=== PATIENT | female | born 1970 ===

== ENCOUNTER 2016-10-06 07:13 | Emergency (ER) | payer OTHER ==
--- NOTE | 2016-10-06 09:40 | ED NURSING NOTES ---
Clinical Report - Nurses [facility] [place] [address] 10/06/2016 7:16 Patient: AUGUST MURGUIA TRIAGE Triage time 07:22. Acuity: LEVEL 3. Chief Complaint: ABDOMINAL PAIN and BLOOD IN STOOLS. Alert. --07:28 Yuly Love R.N. 07:22 10/06/16. BP: 153/84. HR: 124. RR: 16. O2 saturation: 100%. Temp: 98.4 F. Pain level now 0/10. --07:28 Yuly Love R.N. Weight: 103.4 kg. Height/Length: 62 inches. BMI: 41.7. --07:27 Yuly Love R.N. Allergies No Known Drug Allergy. --07:24 Yluy Love R.N. History Arrived by private vehicle. Historian: patient. Accompanied by family. [facility] This started today. She has had nausea. 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 SOCIAL HX: No alcohol use or drug use. No recent travel. No known contact with a sick individual. --07:28 Yuly Love R.N. PROBLEMS: Hemorrhoids. --07:25 Yuly Love R.N. ADDITIONAL SURGERIES: . --07:25 Yuly Love R.N. PHYSICAL ASSESSMENT Ambulatory to room. Patient gowned. GENERAL / NEURO / PSYCH: Alert. Oriented X 4. RESPIRATORY: Respirations not labored. GI / : Obesity. SKIN: Skin is warm. --07:29 Yuly Love R.N. NURSING PROGRESS NOTES Patient gowned. Two patient identifiers checked. Call light placed in reach. Bed placed in lowest position. Brakes of bed on. --07:29 Yuly Love R.N. 08:16 10/06/2016 Site #1 started via IV in the right wrist with an 20g angiocath using 1% intra-dermal lidocaine, with aseptic technique and good blood return; one attempt. Saline lock flushed with 10 mL saline. --08:16 Yuly Love R.N. 08:17 10/06/2016 Started bag #1 1000 mL IV Fluids IV NS (Saline); at 1000 mL/hr over 1 hour(s) via site #1 via IV pump. Allergies verified and confirmed 5 rights. IV patency established. IV site checked: no pain, redness, or swelling. IV flushed thoroughly pre- and post-medication administration. --08:17 Yuly Love R.N. 08:17 10/06/2016 Zofran (Ondansetron HCl) IVP 4 mg given over 2 minute(s) via site #1. IV patency established. IV site checked: no pain, redness, or swelling. IV flushed thoroughly pre- and post-medication administration. IVP given by RN. --08:17 Yuly Love R.N. DISPOSITION / DISCHARGE Departure time: 10:00. Condition at departure: unchanged. Ability to learn limited by language barrier; teaching performed with the family. The patient was discharged home and accompanied by family. She left the Emergency Department ambulatory and via private vehicle. Family member driving. --10:04 Yuly Love R.N. 09:59 10/06/16. BP: 111/63. HR: 76. RR: 18. O2 saturation: 100%. Pain level now 0/10. --10:04 Yuly Love R.N. Locked/Released at 10/06/2016 10:33 by Yuly Love R.N.
--- NOTE | 2016-10-06 09:40 | ED CLINICAL REPORT ---
Clinical Report - Physicians/Mid Levels [facility] [address] [place] [address] 10/06/2016 7:16 Patient: AUGUST MURGUIA Time Seen: 0723; initial patient contact. Arrived- By private vehicle. Historian- patient. HISTORY OF PRESENT ILLNESS Chief Complaint: RECTAL BLEEDING. This started today, has been mild and is still present. It was abrupt in onset. The patient has had rectal bleeding, constipation and nausea but not had rectal pain. No vomiting, diarrhea or abdominal pain. Similar symptoms previously: None. Recent medical care: Not recently seen/assessed. REVIEW OF SYSTEMS The patient has had abnormal bleeding. Her periods have been heavier than normal. No fever or chills. All systems otherwise negative, except as recorded above. PAST HISTORY Hemorrhoids SURGERIES: . Medications: Ferrous Sulfate Oral. Allergies: No Known Drug Allergy. SOCIAL HISTORY Never smoker. No alcohol use or drug use. ADDITIONAL NOTES The nursing notes have been reviewed. PHYSICAL EXAM Vital Signs: 10/06/2016 07:22 BP: 153/84. HR: 124. RR: 16. O2 saturation: 100%. Temp: 98.4 F. Have been reviewed. Hypertensive. Tachycardic. Respiratory rate normal. Temperature normal. Oxygen saturation normal. Appearance: Alert. Oriented X3. No acute distress. Eyes: Eyes normal inspection. ENT: Pharynx normal. CVS: Normal heart rate and rhythm. 1/6 systolic ejection murmur. Respiratory: No respiratory distress. Breath sounds normal. Abdomen: Soft and nontender. Bowel sounds normal. No organomegaly. No mass. Rectal: Inflamed and thrombosed external hemorrhoids. Weakly heme-positive stool; hemoccult quality improvement consultant check passed. (POC test reference range: negative). (Female zurdo Liu present for exam). Skin: Skin warm and dry. Normal skin color. Neuro: Oriented X 3. LABS, X-RAYS, AND EKG Laboratory Tests: UA-Culture if indicated: (PALLAVI: 10/06/2016 08:26) ( MsgRcvd 10/06/2016 09:27) Final results Test Result Flag Units (Reference) URINE COLOR YELLOW URINE APPEARANCE CLEAR URINE GLUCOSE NEGATIVE (NEGATIVE) URINE BILIRUBIN NEGATIVE (NEGATIVE) URINE KETONE NEGATIVE (NEGATIVE) URINE SPECIFIC GRAVITY 1.025 (1.010-1.030) URINE PH 5.5 (5.0-8.0) URINE PROTEIN 1+ (NEGATIVE) URINE UROBILINOGEN 0.2 EU/dL (0.2-1.0) URINE NITRITE NEGATIVE (NEGATIVE) URINE BLOOD 1+ (NEGATIVE) URINE LEUK ESTERASE NEGATIVE (NEGATIVE) URINE RBC 0-1 rbc/hpf (0-1) URINE WBC 0-1 wbc/hpf (0-1) URINE EPITHELIAL CELLS 5-10 EPI/hpf (0-5) URINE BACTERIA FEW (1+) (NONE SEEN) URINE COMMENT CULT NOT INDICATED URINE CULTURES ARE SET-UP BASED ON THE FOLLOWING CRITERIA:POSITIVE NITRITEPOSITIVE LEUKOCYTE ESTERASEGREATER THAN 10 WHITE BLOOD CELLSMODERATE (2+) OR GREATER BACTERIA Urine: (PALLAVI: 10/06/2016 08:26) ( [facility] 10/06/2016 08:47) Final results Test Result Flag Units (Reference) URINE NEGATIVE CBC w Diff: (PALLAVI: 10/06/2016 08:43) ( [facility] 10/06/2016 09:34) Final results Test Result Flag Units (Reference) WHITE BLOOD COUNT 10.0 K/uL (4.5-11.5) RED BLOOD COUNT 4.32 M/uL (4.00-5.20) HEMOGLOBIN 10.1 L gm/dL (12.0-16.0) HEMATOCRIT 31.7 L % (36.0-46.0) MEAN CELL VOLUME 73 L fL (80-100) MEAN CORPUSCULAR HGB 24 L pg (26-34) MEAN CORPUSCULAR HGB CONC 32 g/dL (31-37) RED CELL DISTRIBUTION WIDTH 20.6 H % (11.6-14.8) PLATELET COUNT 432 H K/uL (150-400) NEUTROPHIL % 89.2 H % (50-75) LYMPH % 7.2 L % (25-40) MONO % 3.3 % (3-14) EOSINOPHIL % 0.1 % (0-4) BASOPHIL % 0.2 % (0-2) CMP: (PALLAVI: 10/06/2016 08:43) ( MsgRcvd 10/06/2016 09:37) Final results Test Result Flag Units (Reference) GLUCOSE 136 H mg/dL (70-110) BUN 15 mg/dL (7-18) CREATININE 0.6 mg/dL (0.6-1.3) Estimated GFR >60 mL/min Estimated GFR- >60 mL/min Note: Persistent reduction over 3 months in eGFR<60 mL/min/1.73 m2 defines CKD. Patients with eGFR values>=60 mL/min/1.73 m2 may also have CKD if evidence ofpersistent proteinuria. Additional information may be foundat www.kidney.org. SODIUM 139 mmol/L (136-145) POTASSIUM 3.6 mmol/L (3.5-5.1) CHLORIDE 106 mmol/L (98-107) CARBON DIOXIDE 21 mmol/L (21-32) CALCIUM 8.8 mg/dL (8.5-10.1) TOTAL PROTEIN 7.3 g/dL (6.4-8.2) ALBUMIN 3.4 g/dL (3.3-5.0) BILIRUBIN, TOTAL 0.2 mg/dL (0.0-1.0) ALKALINE PHOSPHATASE 92 U/L (46-116) AST (SGOT) 13 L U/L (15-37) ALT (SGPT) 20 U/L (12-78) . PROGRESS AND PROCEDURES Disposition: Discharged home in good condition. Condition: good. CLINICAL IMPRESSION Thrombosed external hemorrhoids Constipation Mild chronic iron deficiency anemia from chronic blood loss. INSTRUCTIONS Your Current Medications: CONTINUE TAKING THE FOLLOWING MEDICATIONS: Ferrous Sulfate Oral. Prescription Medications: Hydrocortisone 25 mg suppositories: insert 1 suppository into the rectum every 12 hours. Dispense thirty (30). No refills. OTC Medications: Colace 100 mg capsules (available over the counter): take 1 capsule orally, once daily and for 14 days. No refill. Substitution is permissible. Follow-up: Follow up with your doctor in about two days. Call for an appointment. Screening today revealed the patient's blood pressure to be in the hypertensive range. The patient should follow up with a primary care provider for blood pressure management. (Electronically signed by Kelton Reyes Dr. 10/06/2016 9:40)
--- NOTE | 2016-10-06 09:40 | ED NURSING NOTES ---
Clinical Report - Nurses [facility] [place] [address] [place] [address] 10/06/2016 7:16 Patient: AUGUST MURGUIA TRIAGE Triage time 07:22. Acuity: LEVEL 3. Chief Complaint: ABDOMINAL PAIN and BLOOD IN STOOLS. Alert. --07:28 Yuly Love R.N. 07:22 10/06/16. BP: 153/84. HR: 124. RR: 16. O2 saturation: 100%. Temp: 98.4 F. Pain level now 0/10. --07:28 Yuly Love R.N. Weight: 103.4 kg. Height/Length: 62 inches. BMI: 41.7. --07:27 Yuly Love R.N. Allergies No Known Drug Allergy. --07:24 Yuly Love R.N. History Arrived by private vehicle. Historian: patient. Accompanied by family. [facility] This started today. She has had nausea. 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 SOCIAL HX: No alcohol use or drug use. No recent travel. No known contact with a sick individual. --07:28 Yuly Love R.N. PROBLEMS: Hemorrhoids. --07:25 Yuly Love R.N. ADDITIONAL SURGERIES: . --07:25 Yuly Love R.N. PHYSICAL ASSESSMENT Ambulatory to room. Patient gowned. GENERAL / NEURO / PSYCH: Alert. Oriented X 4. RESPIRATORY: Respirations not labored. GI / : Obesity. SKIN: Skin is warm. --07:29 Yuly Love R.N. NURSING PROGRESS NOTES Patient gowned. Two patient identifiers checked. Call light placed in reach. Bed placed in lowest position. Brakes of bed on. --07:29 Yuly Love R.N. 08:16 10/06/2016 Site #1 started via IV in the right wrist with an 20g angiocath using 1% intra-dermal lidocaine, with aseptic technique and good blood return; one attempt. Saline lock flushed with 10 mL saline. --08:16 Yuly Love R.N. 08:17 10/06/2016 Started bag #1 1000 mL IV Fluids IV NS (Saline); at 1000 mL/hr over 1 hour(s) via site #1 via IV pump. Allergies verified and confirmed 5 rights. IV patency established. IV site checked: no pain, redness, or swelling. IV flushed thoroughly pre- and post-medication administration. --08:17 Yuly Love R.N. 08:17 10/06/2016 Zofran (Ondansetron HCl) IVP 4 mg given over 2 minute(s) via site #1. IV patency established. IV site checked: no pain, redness, or swelling. IV flushed thoroughly pre- and post-medication administration. IVP given by RN. --08:17 Yuly Love R.N. DISPOSITION / DISCHARGE Departure time: 10:00. Condition at departure: unchanged. Ability to learn limited by language barrier; teaching performed with the family. The patient was discharged home and accompanied by family. She left the Emergency Department ambulatory and via private vehicle. Family member driving. --10:04 Yuly Love R.N. 09:59 10/06/16. BP: 111/63. HR: 76. RR: 18. O2 saturation: 100%. Pain level now 0/10. --10:04 Yuly Love R.N. Locked/Released at 10/06/2016 10:33 by Yuly Love R.N.
--- NOTE | 2016-10-06 09:40 | ED CLINICAL REPORT ---
Clinical Report - Physicians/Mid Levels [facility] [address] [place] [address] 10/06/2016 7:16 Patient: AUGUST MURGUIA Time Seen: 0723; initial patient contact. Arrived- By private vehicle. Historian- patient. HISTORY OF PRESENT ILLNESS Chief Complaint: RECTAL BLEEDING. This started today, has been mild and is still present. It was abrupt in onset. The patient has had rectal bleeding, constipation and nausea but not had rectal pain. No vomiting, diarrhea or abdominal pain. Similar symptoms previously: None. Recent medical care: Not recently seen/assessed. REVIEW OF SYSTEMS The patient has had abnormal bleeding. Her periods have been heavier than normal. No fever or chills. All systems otherwise negative, except as recorded above. PAST HISTORY Hemorrhoids SURGERIES: . Medications: Ferrous Sulfate Oral. Allergies: No Known Drug Allergy. SOCIAL HISTORY Never smoker. No alcohol use or drug use. ADDITIONAL NOTES The nursing notes have been reviewed. PHYSICAL EXAM Vital Signs: 10/06/2016 07:22 BP: 153/84. HR: 124. RR: 16. O2 saturation: 100%. Temp: 98.4 F. Have been reviewed. Hypertensive. Tachycardic. Respiratory rate normal. Temperature normal. Oxygen saturation normal. Appearance: Alert. Oriented X3. No acute distress. Eyes: Eyes normal inspection. ENT: Pharynx normal. CVS: Normal heart rate and rhythm. 1/6 systolic ejection murmur. Respiratory: No respiratory distress. Breath sounds normal. Abdomen: Soft and nontender. Bowel sounds normal. No organomegaly. No mass. Rectal: Inflamed and thrombosed external hemorrhoids. Weakly heme-positive stool; hemoccult quality engineer medical device check passed. (POC test reference range: negative). (Female zurdo Liu present for exam). Skin: Skin warm and dry. Normal skin color. Neuro: Oriented X 3. LABS, X-RAYS, AND EKG Laboratory Tests: UA-Culture if indicated: (PALLAVI: 10/06/2016 08:26) ( MsgRcvd 10/06/2016 09:27) Final results Test Result Flag Units (Reference) URINE COLOR YELLOW URINE APPEARANCE CLEAR URINE GLUCOSE NEGATIVE (NEGATIVE) URINE BILIRUBIN NEGATIVE (NEGATIVE) URINE KETONE NEGATIVE (NEGATIVE) URINE SPECIFIC GRAVITY 1.025 (1.010-1.030) URINE PH 5.5 (5.0-8.0) URINE PROTEIN 1+ (NEGATIVE) URINE UROBILINOGEN 0.2 EU/dL (0.2-1.0) URINE NITRITE NEGATIVE (NEGATIVE) URINE BLOOD 1+ (NEGATIVE) URINE LEUK ESTERASE NEGATIVE (NEGATIVE) URINE RBC 0-1 rbc/hpf (0-1) URINE WBC 0-1 wbc/hpf (0-1) URINE EPITHELIAL CELLS 5-10 EPI/hpf (0-5) URINE BACTERIA FEW (1+) (NONE SEEN) URINE COMMENT CULT NOT INDICATED URINE CULTURES ARE SET-UP BASED ON THE FOLLOWING CRITERIA:POSITIVE NITRITEPOSITIVE LEUKOCYTE ESTERASEGREATER THAN 10 WHITE BLOOD CELLSMODERATE (2+) OR GREATER BACTERIA Urine: (PALLAVI: 10/06/2016 08:26) ( [facility] 10/06/2016 08:47) Final results Test Result Flag Units (Reference) URINE NEGATIVE CBC w Diff: (PALLAVI: 10/06/2016 08:43) ( [facility] 10/06/2016 09:34) Final results Test Result Flag Units (Reference) WHITE BLOOD COUNT 10.0 K/uL (4.5-11.5) RED BLOOD COUNT 4.32 M/uL (4.00-5.20) HEMOGLOBIN 10.1 L gm/dL (12.0-16.0) HEMATOCRIT 31.7 L % (36.0-46.0) MEAN CELL VOLUME 73 L fL (80-100) MEAN CORPUSCULAR HGB 24 L pg (26-34) MEAN CORPUSCULAR HGB CONC 32 g/dL (31-37) RED CELL DISTRIBUTION WIDTH 20.6 H % (11.6-14.8) PLATELET COUNT 432 H K/uL (150-400) NEUTROPHIL % 89.2 H % (50-75) LYMPH % 7.2 L % (25-40) MONO % 3.3 % (3-14) EOSINOPHIL % 0.1 % (0-4) BASOPHIL % 0.2 % (0-2) CMP: (PALLAVI: 10/06/2016 08:43) ( MsgRcvd 10/06/2016 09:37) Final results Test Result Flag Units (Reference) GLUCOSE 136 H mg/dL (70-110) BUN 15 mg/dL (7-18) CREATININE 0.6 mg/dL (0.6-1.3) Estimated GFR >60 mL/min Estimated GFR- >60 mL/min Note: Persistent reduction over 3 months in eGFR<60 mL/min/1.73 m2 defines CKD. Patients with eGFR values>=60 mL/min/1.73 m2 may also have CKD if evidence ofpersistent proteinuria. Additional information may be foundat www.kidney.org. SODIUM 139 mmol/L (136-145) POTASSIUM 3.6 mmol/L (3.5-5.1) CHLORIDE 106 mmol/L (98-107) CARBON DIOXIDE 21 mmol/L (21-32) CALCIUM 8.8 mg/dL (8.5-10.1) TOTAL PROTEIN 7.3 g/dL (6.4-8.2) ALBUMIN 3.4 g/dL (3.3-5.0) BILIRUBIN, TOTAL 0.2 mg/dL (0.0-1.0) ALKALINE PHOSPHATASE 92 U/L (46-116) AST (SGOT) 13 L U/L (15-37) ALT (SGPT) 20 U/L (12-78) . PROGRESS AND PROCEDURES Disposition: Discharged home in good condition. Condition: good. CLINICAL IMPRESSION Thrombosed external hemorrhoids Constipation Mild chronic iron deficiency anemia from chronic blood loss. INSTRUCTIONS Your Current Medications: CONTINUE TAKING THE FOLLOWING MEDICATIONS: Ferrous Sulfate Oral. Prescription Medications: Hydrocortisone 25 mg suppositories: insert 1 suppository into the rectum every 12 hours. Dispense thirty (30). No refills. OTC Medications: Colace 100 mg capsules (available over the counter): take 1 capsule orally, once daily and for 14 days. No refill. Substitution is permissible. Follow-up: Follow up with your doctor in about two days. Call for an appointment. Screening today revealed the patient's blood pressure to be in the hypertensive range. The patient should follow up with a primary care provider for blood pressure management. (Electronically signed by Kelton Reyes Dr. 10/06/2016 9:40)
--- NOTE | 2016-10-06 09:40 | ED ORDER SUMMARY ---
..... Patient: AUGUST MURGUIA OrderSheet [facility] VisitID: [id number] [place] [address] 46y, F Registration Date/Time: 10/06/2016 ORDER SHEET Weight: 103.4 kg Allergies: No Known Drug Allergy GENERAL ORDERS: CBC w Diff Urgent (07:10/06/2016 Zaira Hernandez) (Ack 7:47 TBergley) (8:45 TBergley) CMP Urgent (:10/06/2016 Zaira Hernandez) (Ack 7:47 TBergley) (8:45 TBergley) UA-Culture if indicated Urgent (:10/06/2016 Zaira Hernandez) (Ack 7:47 TBergley) Urine Urgent (:10/06/2016 Zaira Hernandez) (Ack 7:47 TBergley) MEDICATION ORDERS: IV FLUIDS: IV NS : initial bolus none -, then 1000 mL/hr for X1 (NOW) (07:46 10/06/2016 Zaira Hernandez) (Ack 7:53 DMaziarka R.N.) (8:17 DMaziarka R.N.) Zofran IV 4 mg (NOW) (07:10/06/2016 Zaira Hernandez) (Ack 7:53 DMaziarka R.N.) (8:17 DMaziarka R.N.) ORDER SHEET NOTES: [Electronically signed by Kelton Reyes Dr. (09:40 10/06/2016)] [Electronically signed by Yuly Love R.N. (10:33 10/06/2016)] [Electronically locked/signed by Yuly Love R.N. (10:33 10/06/2016)]
--- NOTE | 2016-10-06 09:40 | ED ORDER SUMMARY ---
..... Patient: AUGUST MURGUIA OrderSheet [facility] VisitID: [id number] [place] [address] 46y, F Registration Date/Time: 10/06/2016 ORDER SHEET Weight: 103.4 kg Allergies: No Known Drug Allergy GENERAL ORDERS: CBC w Diff Urgent (07:10/06/2016 Zaira Hernandez) (Ack 7:47 TBergley) (8:45 TBergley) CMP Urgent (:10/06/2016 Zaira Hernandez) (Ack 7:47 TBergley) (8:45 TBergley) UA-Culture if indicated Urgent (:10/06/2016 Zaira Hernandez) (Ack 7:47 TBergley) Urine Urgent (:10/06/2016 Zaira Hernandez) (Ack 7:47 TBergley) MEDICATION ORDERS: IV FLUIDS: IV NS : initial bolus none -, then 1000 mL/hr for X1 (NOW) (07:46 10/06/2016 Zaira Hernandez) (Ack 7:53 DMaziarka R.N.) (8:17 DMaziarka R.N.) Zofran IV 4 mg (NOW) (07:10/06/2016 Zaira Hernandez) (Ack 7:53 DMaziarka R.N.) (8:17 DMaziarka R.N.) ORDER SHEET NOTES: [Electronically signed by Kelton Reyes Dr. (09:40 10/06/2016)] [Electronically signed by Yuly Love R.N. (10:33 10/06/2016)] [Electronically locked/signed by Yuly Love R.N. (10:33 10/06/2016)]
--- NOTE | 2016-10-06 10:33 | ED MED RECONCILIATION SUMMARY ---
Patient: LIONEL MURGUIAROQUEJOHAN Medication Reconciliation Report [facility] VisitID: [id number] [address] [place] [address] 46y, F Registration Date/Time: 10/06/2016 Weight: 103.4 kg Height/Length: 62 in. BMI: 41.7 ALLERGIES: No Known Drug Allergy The patient's Home Medications are listed below: CONTINUE TAKING THE FOLLOWING MEDICATIONS: Ferrous Sulfate Oral The source(s) of the original Home Medication information: Not obtained. The following Medications were given to the patient in the Emergency Department: IV NS IV Fluids bolus 0, then 1000 mL/hr, administered: 10/06/2016 8:17:00 AM Zofran [IVP] IVP 4 mg, administered: 10/06/2016 8:17:00 AM The following Medications were prescribed to the patient: Colace 100 mg capsules (available over the counter): take 1 capsule orally, once daily and for 14 days. No refill. Substitution is permissible. -- Kelton Reyes Dr. Hydrocortisone 25 mg suppositories: insert 1 suppository into the rectum every 12 hours. Dispense thirty (30). No refills. -- Kelton Reyes Dr.
--- NOTE | 2016-10-06 10:33 | ED DISCHARGE INSTRUCTIONS ---
Patient: AUGUST MURGUIA General Instructions [facility] VisitID: [id number] [place] [address] 46y, F Registration Date/Time: 10/06/2016 Thrombosed external hemorrhoids Constipation Mild chronic iron deficiency anemia from chronic blood loss. INSTRUCTIONS Your Current Medications: CONTINUE TAKING THE FOLLOWING MEDICATIONS: Ferrous Sulfate Oral. Prescription Medications: Hydrocortisone 25 mg suppositories: insert 1 suppository into the rectum every 12 hours. Dispense thirty (30). No refills. OTC Medications: Colace 100 mg capsules (available over the counter): take 1 capsule orally, once daily and for 14 days. No refill. Substitution is permissible. Follow-up: Follow up with your doctor in about two days. Call for an appointment. Screening today revealed the patient's blood pressure to be in the hypertensive range. The patient should follow up with a primary care provider for blood pressure management. ADDITIONAL INFORMATION Hemorrhoids,External A hemorrhoid is a local swelling of the veins around the rectum. These most often occur from repeated forceful straining during bowel movements or heavy lifting. It may also occur in the last few months of . A hemorrhoid feels like a soft lump. It may itch from time to time. When it is inflamed it becomes hard and very painful. Home Care: SITZ BATHS: Sit in a tub filled with about 6 inches of hot water. Allow the water to run in order to keep it hot for a total of 10-15 minutes. Repeat this three times a day until pain is relieved. Keep your stools soft to avoid the need to strain when having a bowel movement. Unless another medicine was prescribed, try the following: IF YOU ARE CONSTIPATED: You may use [id number]-ogo-[id number] laxatives such as MILK OF MAGNESIA (mild acting) or, DULCOLAX (if stronger action is needed). IF YOU ARE NOT CONSTIPATED but stools are hard, try taking Colace (docusate sodium) which is a stool softener. This will soften stools without producing diarrhea. Drinking extra fluids may also help. The use of creams applied to the hemorrhoid itself, such as ANUSOL or PREPARATION H, will be helpful to reduce pain and itching, and speed healing. Prevention: Avoid straining on the toilet by keeping stools soft. Increasing FIBER in your diet (fruits, cereals, vegetables and grains) will promote healthy bowel movement. If this is not working, you may use METAMUCIL and similar products. These are dfua-tux-xlobnan fiber supplements. You must drink extra fluids when taking these to avoid constipation. Follow Up with your doctor if you do not begin to respond to the above treatment within the next few days. Get Prompt Medical Attention if any of the following occur: Large amount of rectal bleeding (more than 1 cup of blood in 24 hours) Increasing rectal pain or rectal pain that continues for more than three days of treatment Weakness, dizziness or fainting Vomiting blood (red or black color) Rectal Bleeding (Stable) Your exam today shows signs of blood in the stool. This is called rectal bleeding, because the blood passes through the rectum. However, the blood may not be coming from the rectum. Blood in the stool may be red or black in color. Red blood in the stool usually comes from the lower gastro-intestinal (GI) tract. This may be due to diverticulosis, polyps, colon inflammation or infection, anal fissure or hemorrhoids. In persons over 50 tumors and cancer of the intestinal tract may first show up as red blood in the stool. Upper GI bleeding causes the stool to turn black. This may occur with bleeding from the esophagus, stomach, duodenum or small intestine. Very small amounts of GI bleeding may not be visible and can only be discovered on a chemical test of the stool. You have not lost a large amount of blood and your condition appears stable at this time. It is very important to have a follow-up exam to determine the exact cause of your bleeding. Home Care: 1) You may resume normal activity as long as you feel well. 2) Avoid aspirin and anti-inflammatory drugs such as ibuprofen (Advil, Motrin) and naproxen (Aleve and Naprosyn). You may use acetaminophen (Tylenol) for pain. [ NOTE : If you have chronic liver disease, talk with your doctor before using acetaminophen.] 3) Avoid alcohol. Follow Up with your doctor or as advised by our medical staff. It is very important that you have further tests done to find the cause of your bleeding. Get Prompt Medical Attention if any of the following occur: -- Large amount of rectal bleeding (more than 1 cup of blood in 24 hours) -- Increasing abdominal pain -- Weakness, dizziness or fainting -- Vomiting blood (red or black color) Constipation (Adult) Constipation is bowel movements that are less frequent than usual. Stools often become very hard and difficult to pass. This may lead to abdominal pain and bloating. It may also cause painful bowel movements. Constipation may be due to a diet thats low in fiber. Some medications, especially pain medications, can also cause it. Constipation may be treated with enemas, suppositories, laxatives or stool softeners. Your doctor will advise you which will work best for you. Follow the advice below to help avoid this problem in the future. Home Care Medication: Take any medicines as directed. Some laxatives are safe only for occasional use. Others can be taken on a regular basis. Talk to your doctor or pharmacist if you have questions. General Care: Prescription pain medications can cause constipation. If you are prescribed pain medications, ask the doctor whether you should also take a stool softener. A diet high in fiber with plenty of fluids helps to maintain regular, soft bowel movements. The following foods are good sources of dietary fiber: Cereals and breads: Whole grain cereal with bran, oatmeal, rolled oats, whole grain breads Fruits: All fruits (fresh and dried), raisins, prunes, apricots, berries, figs Vegetables: Any fresh vegetables, especially peas, broccoli, brussels sprouts, winter squash, green beans, cauliflower, alicea beans, carrots Other: Popcorn, brown rice Drink plenty of water when you increase the amount of fiber you eat. Follow Up with your doctor or return to this facility if symptoms do not improve in the next few days. You may require further tests or a referral to a specialist. Get Prompt Medical Attention if any of the following occur: Fever over 100.4F (38C) Failure to resume normal bowel movements Increasing abdominal or back pain Nausea or vomiting Abdominal swelling Blood in the stool Weakness, dizziness or fainting Unexpected vaginal bleeding Anemia, Iron Deficiency [Adult] Anemia is a condition where the size or number of red blood cells in the body is reduced. Iron is needed in the diet to make red cells. The red blood cells carry oxygen to all parts of the body. Anemia limits the delivery of oxygen to where it is needed. This causes a feeling of being tired and run down. When anemia becomes severe, the skin becomes pale and there is shortness of breath with exertion, headaches, dizziness, drowsiness and fatigue. The cause of your anemia is lack of iron in your body. This may occur due to blood loss (for example, heavy menstrual periods or bleeding from the stomach or intestines) or a poor diet (not eating enough iron-containing foods), inability to absorb iron from your diet, or . If the blood count is low enough, an IRON SUPPLEMENT will be prescribed. It usually takes about 2-3 months of treatment with iron supplements to correct an anemia. Severe cases of anemia requires a blood transfusion to rapidly correct symptoms and deliver more oxygen to the cells. Home Care: 1) Increase the iron stores in your body by eating foods high in iron content. This is a natural way of building your blood cells back up again. Beef, liver, spinach and other dark green leafy vegetables, whole grain products, beans and nuts are all natural sources of iron. 2) If you are having symptoms of anemia listed above: -- Do not overexert yourself. -- Talk to your doctor before flying on an airplane or traveling to high altitudes. Follow Up with your doctor in 2 months for a repeat red blood cell count, or as recommended by our staff, to be sure that the anemia has been corrected. Get Prompt Medical Attention if any of the following occur or worsen: -- Shortness of breath or chest pain -- Dizziness or fainting -- Vomiting blood or passing red or black-colored stool You have been given the following additional information: Hemorrhoids Rectal Bleed, Stable Constipation (Adult) Anemia, Iron Deficiency (Adult) (Electronically signed by Kelton Reyes Dr. 10/06/2016 9:40)
--- NOTE | 2016-10-06 10:33 | ED MAR SUMMARY ---
..... Medication Administration Record [facility] [address] [place] [address] Patient: AUGUST MURGUIA Visit ID: [id number] 46y, F Weight: 103.4 kg Height/Length: 62 in BMI: 41.7 ALLERGIES: No Known Drug Allergy Start 08:17 10/06/2016 Yuly Love RAdrianNAdrian Medication Administered: IV NS (SALINE), Dose: IV Fluids over 1 hour(s), Rate: 1000 mL/hr, Dispensed: 1000 mL bag, Site: #1 right wrist. Medication Ordered: IV NS : initial bolus none -, then 1000 mL/hr for X1 (NOW). Given 08:10/06/2016 Yuly Love, RAdrianNAdrian Medication Administered: ZOFRAN [IVP] (ONDANSETRON HCL), Dose: 4 mg IVP over 2 minute(s), Site: #1 right wrist. Medication Ordered: Zofran IV 4 mg (NOW).
--- NOTE | 2016-10-06 10:33 | ED MAR SUMMARY ---
..... Medication Administration Record [facility] [address] [place] [address] Patient: AUGUST MURGUIA Visit ID: [id number] 46y, F Weight: 103.4 kg Height/Length: 62 in BMI: 41.7 ALLERGIES: No Known Drug Allergy Start 08:17 10/06/2016 uYly Love RAdrianNAdrian Medication Administered: IV NS (SALINE), Dose: IV Fluids over 1 hour(s), Rate: 1000 mL/hr, Dispensed: 1000 mL bag, Site: #1 right wrist. Medication Ordered: IV NS : initial bolus none -, then 1000 mL/hr for X1 (NOW). Given 08:10/06/2016 Yuly Love, RAdrianNAdrian Medication Administered: ZOFRAN [IVP] (ONDANSETRON HCL), Dose: 4 mg IVP over 2 minute(s), Site: #1 right wrist. Medication Ordered: Zofran IV 4 mg (NOW).
--- NOTE | 2016-10-06 10:33 | ED MED RECONCILIATION SUMMARY ---
Patient: LIONEL MURGIUAROQUEJOHAN Medication Reconciliation Report [facility] VisitID: [id number] [address] [place] [address] 46y, F Registration Date/Time: 10/06/2016 Weight: 103.4 kg Height/Length: 62 in. BMI: 41.7 ALLERGIES: No Known Drug Allergy The patient's Home Medications are listed below: CONTINUE TAKING THE FOLLOWING MEDICATIONS: Ferrous Sulfate Oral The source(s) of the original Home Medication information: Not obtained. The following Medications were given to the patient in the Emergency Department: IV NS IV Fluids bolus 0, then 1000 mL/hr, administered: 10/06/2016 8:17:00 AM Zofran [IVP] IVP 4 mg, administered: 10/06/2016 8:17:00 AM The following Medications were prescribed to the patient: Colace 100 mg capsules (available over the counter): take 1 capsule orally, once daily and for 14 days. No refill. Substitution is permissible. -- Kelton Reyes Dr. Hydrocortisone 25 mg suppositories: insert 1 suppository into the rectum every 12 hours. Dispense thirty (30). No refills. -- Kelton Reyes Dr.
== END 2016-10-06 10:00 | disposition home or self-care (01) ==
LOC: ED SRH 07:13
DX: K64.5 Perianal venous thrombosis (principal); D50.0 Iron deficiency anemia secondary to blood loss (chronic); K59.00 Constipation, unspecified
CPT/HCPCS: 90004; 90074; 90100; 93070; 95059